=== PATIENT | female | born 1995 | race American Indian/Alaskan Native ===

== ENCOUNTER 2016-09-01 19:23 | Emergency (ER) | payer SELFPAY ==
[2016-09-01 20:04] LABS: Basophils % (Auto) 0.3 % (0.0-1.8); Eosinophils % (Auto) 0.2 % (0.0-4.3); Hematocrit 44.7 % (30.3-42.9); Hemoglobin 14.7 gm/dl (10.1-14.3); Mean Corpuscular HGB Conc 33 % (30-34); Mean Corpuscular Hemoglobin 28 pg (28-32); Mean Corpuscular Volume 86 fl (79-97); Platelet Count 251 K/mm3 (140-440); Red Blood Count 5.21 M/mm3 (3.65-5.03); Red Cell Distribution Width 14.7 % (13.2-15.2); White Blood Count 11.8 K/mm3 (4.5-11.0)
[2016-09-01 20:17] LABS: Anion Gap 20 mmol/L; Blood Urea Nitrogen 10 mg/dL (7-17); Calcium 9.8 mg/dL (8.4-10.2); Carbon Dioxide 24 mmol/L (22-30); Chloride 96.9 mmol/L (98-107); Glucose 107 mg/dL (65-100); Potassium 3.8 mmol/L (3.6-5.0); Sodium 137 mmol/L (137-145)
[2016-09-01] MEDS ORDERED: ZOFRAN IV ONE (21:21)
--- NOTE | 2016-09-01 22:57 | Ultrasound Report ---
FINAL REPORT PROCEDURE: US OB \T\lt; = 14 WK FETUS ADD GEST TECHNIQUE: Real-time transabdominal and transvaginal sonography of the uterus, placenta, amniotic fluid, adnexa, and fetus was performed with image documentation. Measurements were obtained to determine age/size. M-mode Doppler was used to document heartbeat. CPT 99666 and 25358 HISTORY: 6 WEEK PREG/LOWER ABD PAIN COMPARISON: No prior studies are available for comparison. FINDINGS: ADDITIONAL GESTATION: None. Uterus measures 8.1 cm in length. Intrauterine is seen with mean sac diameter of 1.8 cm corresponding to 6 weeks 2 days gestational age. Yolk sac is seen but pole is not yet identified. Mild free fluid in the cul-de-sac is likely physiologic. Ovaries are obscured due to bowel gas. IMPRESSION: Early IUP is suspected at 6 weeks 2 days gestational age. However, pole is not yet seen and is usually seen at this time transvaginally. Correlation with serial quantitative beta HCG levels is recommended. Repeat ultrasound in a few days time may be useful if these continue to rise.
--- NOTE | 2016-09-01 22:57 | Ultrasound Report ---
FINAL REPORT PROCEDURE: US OB TRANSVAGINAL TECHNIQUE: Real-time transabdominal and transvaginal sonography of the uterus, placenta, amniotic fluid, adnexa, and fetus was performed with image documentation. Measurements were obtained to determine age/size. M-mode Doppler was used to document heartbeat. CPT 69344 and 10960 HISTORY: 6 WEEK PREG/LOWER ABD PAIN COMPARISON: No prior studies are available for comparison. FINDINGS: ADDITIONAL GESTATION: None. Uterus measures 8.1 cm in length. Intrauterine is seen with mean sac diameter of 1.8 cm corresponding to 6 weeks 2 days gestational age. Yolk sac is seen but pole is not yet identified. Mild free fluid in the cul-de-sac is likely physiologic. Ovaries are obscured due to bowel gas. IMPRESSION: Early IUP is suspected at 6 weeks 2 days gestational age. However, pole is not yet seen and is usually seen at this time transvaginally. Correlation with serial quantitative beta HCG levels is recommended. Repeat ultrasound in a few days time may be useful if these continue to rise.
[2016-09-02 01:03] VITALS: BP 120/82
[2016-09-02] MEDS ORDERED: LACTATED RINGERS 1,000 ML IV ONE (02:46)
--- NOTE | 2016-09-02 03:02 | Emergency Department Report ---
ED N/V/D HPI - General Chief complaint: Nausea/Vomiting/Diarrhea Stated complaint: VOMITING Time Seen by Provider: 09/02/16 02:47 Source: patient Mode of arrival: Ambulatory Limitations: No Limitations - History of Present Illness Initial comments: This is a 21-year-old female well-nourished with nontoxic or ill in appearance that presents with nausea vomiting 2 days. Patient states she is 6 weeks . Patient stated that does not have a security officer supervisor due to insurance purposes but stated she has an appointment with the health department next week for insurance and security officer supervisor. Patient denies vaginal bleeding, abdominal pain, chest pain, diarrhea, fever, chills, numbness, tingling sensation, headache, stiff neck. Patient states allergies to sulfa. Denies past medical history. MD complaint: nausea, vomiting -: Gradual, days(s) (2) Associated Abdominal Pain: No Associated Symptoms: denies other symptoms, nausea/vomiting. denies: myalgias, chest pain, cough, diaphoresis, fever/chills, headaches, loss of appetite, malaise, rash, dysuria, shortness of breath, syncope, weakness - Related Data Previous Rx's Medication Instructions Recorded Last Taken Type Doxylamine/Pyridoxine HCl 1 each PO DAILY #30 tablet. 09/02/16 Unknown Rx [Chivo Barnes 10-10 mg Tablet] Nitrofurantoin Brewster/M-Cryst 100 mg PO Q12HR #14 capsule 09/02/16 Unknown Rx [Macrobid CAP] Allergies Allergy/AdvReac Type Severity Reaction Status Date / Time Sulfa (Sulfonamide Allergy Itching Verified 09/01/16 19:37 Antibiotics) ED Review of Systems ROS: Stated complaint: VOMITING Other details as noted in HPI Constitutional: denies: chills, fever Eyes: denies: eye pain, eye discharge, vision change ENT: denies: ear pain, throat pain Respiratory: denies: cough, shortness of breath, wheezing Cardiovascular: denies: chest pain, palpitations Endocrine: no symptoms reported Gastrointestinal: denies: abdominal pain, nausea, diarrhea Genitourinary: denies: urgency, dysuria, discharge Musculoskeletal: denies: back pain, joint swelling, arthralgia Skin: denies: rash, lesions Neurological: denies: headache, weakness, paresthesias Psychiatric: denies: anxiety, depression Hematological/Lymphatic: denies: easy bleeding, easy bruising ED Past Medical Hx - Past Medical History Previous Medical History?: No - Surgical History Hx Appendectomy: Yes - Social History Smoking Status: Never Smoker Substance Use Type: Marijuana - Medications Home Medications: Home Medications Medication Instructions Recorded Confirmed Last Taken Type Doxylamine/Pyridoxine HCl 1 each PO DAILY #30 tablet.dr 09/02/16 Unknown Rx [Diclegis Dr 10-10 mg Tablet] Nitrofurantoin Brewster/M-Cryst 100 mg PO Q12HR #14 capsule 09/02/16 Unknown Rx [Macrobid CAP] ED Physical Exam - General Limitations: No Limitations General appearance: alert, in no apparent distress - Head Head exam: Present: atraumatic, normocephalic, normal inspection - Eye Eye exam: Present: normal appearance, PERRL, EOMI. Absent: scleral icterus, conjunctival injection, nystagmus, periorbital swelling, periorbital tenderness Pupils: Present: normal accommodation - ENT ENT exam: Present: normal exam, normal orophraynx, mucous membranes moist, TM's normal bilaterally, normal external ear exam - Neck Neck exam: Present: normal inspection, full ROM. Absent: tenderness, meningismus, lymphadenopathy, thyromegaly - Respiratory Respiratory exam: Present: normal lung sounds bilaterally. Absent: respiratory distress, wheezes, rales, rhonchi, stridor, chest wall tenderness, accessory muscle use, decreased breath sounds, prolonged expiratory - Cardiovascular Cardiovascular Exam: Present: regular rate, normal rhythm, normal heart sounds. Absent: bradycardia, tachycardia, irregular rhythm, systolic murmur, diastolic murmur, rubs, gallop - GI/Abdominal GI/Abdominal exam: Present: soft, normal bowel sounds. Absent: distended, tenderness, guarding, rebound, rigid, diminished bowel sounds - Extremities Exam Extremities exam: Present: normal inspection, full ROM, normal capillary refill. Absent: tenderness, pedal edema, joint swelling, calf tenderness - Back Exam Back exam: Present: normal inspection, full ROM. Absent: tenderness, CVA tenderness (R), CVA tenderness (L), muscle spasm, paraspinal tenderness, vertebral tenderness, rash noted - Neurological Exam Neurological exam: Present: alert, oriented X3, CN II-XII intact, normal gait - Psychiatric Psychiatric exam: Present: normal affect, normal mood - Skin Skin exam: Present: warm, dry, intact, normal color. Absent: rash ED Course Vital Signs 09/01/16 09/01/16 09/02/16 19:34 21:06 01:02 Temperature 98.3 F 98.1 F 98.8 F Pulse Rate 98 H 90 83 Respiratory 20 26 H 12 Rate Blood Pressure 136/88 120/82 Blood Pressure 114/73 [Right] O2 Sat by Pulse 100 100 98 Oximetry - Reevaluation(s) Reevaluation #1: 09/02/16 03:04 Patient is resting comfortably with no signs of distress. Reevaluation #2: 09/02/16 03:04 Patient stated she received Zofran in triage at 9:30 PM and was able to drink and tolerate fluids as well as eating chips. Reevaluation #3: 09/02/16 04:10 Patient is resting comfortably with no signs of distress. Denies symptoms of n/ v. ED Medical Decision Making - Lab Data Result diagrams: 09/01/16 19:48 09/01/16 19:48 - Medical Decision Making Ed course: This is a 21-year-old that presents with hyperemesis gravidarum 1- Pt received Zofran 8mg IV in the triage area and patient stated feels much better and drank and ate chips ever since then. 2- Pt received LR 1000 ml in the ED. 3- patient also received a by mouth challenge and did well but no signs of nausea or vomiting. 4- patient received doxylamine-pyridoxine, discharge and was instructed to follow-up with her security officer supervisor in 3-5 days. 5- CBC, BMP, quantitative serum, transvaginal ultrasound and abdominal ultrasound has been obtained in the ED. UA indicates UTI. Pt received Macrobid x7 days at d/c. 6- at time time of discharge, the patient does not seem toxic or ill in appearance. No acute signs of distress noted. Patient agrees to discharge treatment plan of care. No further questions noted by the patient. Critical care attestation.: If time is entered above; I have spent that time in minutes in the direct care of this critically ill patient, excluding procedure time. ED Disposition Clinical Impression: Hyperemesis gravidarum UTI (urinary tract infection) Qualifiers: Urinary tract infection type: site unspecified Hematuria presence: without hematuria Qualified Code(s): N39.0 - Urinary tract infection, site not specified Disposition: DC-01 TO HOME OR SELFCARE Is pt being admited?: No Does the pt Need Aspirin: No Condition: Stable Instructions: Doxylamine/Pyridoxine (By mouth), Hyperemesis Gravidarum (ED), Urinary Tract Infection in Women (ED) Additional Instructions: Take doxylamine-pyridoxine as prescribed (Initial: Two tablets at bedtime on day 1 and 2; if symptoms persist, take 1 tablet in morning and 2 tablets at bedtime on day 3; if symptoms persist, may increase to 1 tablet in morning, 1 tablet mid-afternoon, and 2 tablets at bedtime on day 4 (maximum: doxylamine 40 mg/pyridoxine 40 mg (4 tablets) per day). Follow-up with your primary care doctor/security officer supervisor in 3-5 days. Take Macrobid as prescribed for urinary tract infection. Prescriptions: Doxylamine/Pyridoxine HCl [Chivo Barnes 10-10 mg Tablet] 1 each PO DAILY #30 tablet. Nitrofurantoin Brewster/M-Cryst [Macrobid CAP] 100 mg PO Q12HR #14 capsule Referrals: PRIMARY CARE, [Primary Care Provider] - 3-5 Days TASNEEM BROWN MD [Staff Physician] - 3-5 Days [facility] [Outside] - 3-5 Days [facility] [Outside] - 3-5 Days Forms: Work/School Release Form(ED)
[2016-09-02 04:59] LABS: Bilirubin,Urine NEG (Negative); Blood,Urine NEG (Negative); Ketones,Urine 20 mg/dL (Negative); Leukocyte Esterase,Urine LG (Negative); Mucus,Urine 3+ /HPF; Nitrite,Urine NEG (Negative); Urobilinogen,Urine < 2.0 mg/dL (<2.0)
== END 2016-09-02 05:39 | disposition home or self-care (01) ==
LOC: ED 19:23
DX: O21.0 Mild hyperemesis gravidarum (principal); O23.41 Unspecified infection of urinary tract in pregnancy, first trimester; F12.10 Cannabis abuse, uncomplicated; O99.321 Drug use complicating pregnancy, first trimester; Z3A.01 Less than 8 weeks gestation of pregnancy
CPT/HCPCS: 36415; 76801; 76817; 80048; 81001; 84702; 85025; 96361; 96374; 99284; J2405; J7120; 76802